=== PATIENT | female | born 1995 | race Caucasian/White ===

== ENCOUNTER 2017-01-16 06:45 | Emergency (ER) | payer OTHER, BC ==
[~2017-01-16] VITALS: Ht 165.1 cm; Wt 60.0 kg
[~2017-01-16 06:45] MED LIST: birth control
[2017-01-16 06:48] VITALS: BP 119/74; PULSE 87; RESP 16; TEMP 97.9; O2SAT 99
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
[2017-01-16 09:00] VITALS: BP 110/66; PULSE 80; RESP 14; O2SAT 99
[2017-03-02] MEDS ORDERED: BUTA1CAP5 PO (16:21)
[2017-03-02] MEDS ORDERED: TRAZ50TA12 PO ×2 (16:21→16:29)
== END 2017-01-16 09:30 | disposition home or self-care (01) ==
LOC: NEPC 06:45
DX: S16.1XXA Strain of muscle, fascia and tendon at neck level, initial encounter (principal); S09.90XA Unspecified injury of head, initial encounter; V43.52XA Car driver injured in collision with other type car in traffic accident, initial encounter; Y93.9 Activity, unspecified; Y92.9 Unspecified place or not applicable; Y99.9 Unspecified external cause status
CPT/HCPCS: 70450; 71010; 72125; 72170

== ENCOUNTER 2018-01-04 10:38 | Emergency (ER) | payer BC, OTHER ==
[~2018-01-04] VITALS: Ht 165.1 cm; Wt 60.0 kg
[~2018-01-04 10:38] MED LIST changes: +BUTA1CAP5 PO; +TRAZ50TA12 PO
[2018-01-04 10:41] VITALS: BP 135/76; PULSE 104; RESP 16; TEMP 97.8; O2SAT 97
--- NOTE | 2018-01-04 11:19 | PD ---
HPI Chief Complaint: Exposure to Blood/Body Fluids Time Seen by Provider: 11:05 Travel History International Travel<30 days: No Contact w/Intl Traveler<30days: No Traveled to known affect area: No History of Present Illness HPI The patient is a 22-year-old female who presents to the emergency department for blood exposure to the left eye. 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 The patient was wearing a mask but no eye shield. The patient states there were blood particles just inferior to the left eye, she may have received blood onto the conjunctiva. She immediately irrigated the left eye. She states the patient in the intensive care unit did have a history of IV drug abuse and hepatitis C, she is unsure about the patient's HIV status. The patient's hepatitis B vaccination is up-to-date, however, she was a "low responder". The patient denies any history of HIV or hepatitis C. Her tetanus shot is up-to-date. PFSH Past Medical History Anxiety: Yes Diminished Hearing: No ?: Not LMP: 12/23/17 Past Surgical History Other Surgery: Yes (bilateral breast implants) Social History Alcohol Use: No Tobacco Use: No Substance Use: No Allergies-Medications (Allergen,Severity, Reaction): Coded Allergies: No Known Allergies (Unverified , 03/02/17) Reported Meds & Prescriptions Reported Meds & Active Scripts Active Trazodone (Trazodone HCl) 50 Mg Tab 50 Mg PO HS [id number]-Bktrexpltsoge-Rmiyhjlo 50-300-40 Mg Cap 1 Cap PO Q4H PRN Do not exceed 6 capsules/day. Reported [ control] Review of Systems Except as stated in HPI: all other systems reviewed are Neg Skin: Positive Other (blood exposure to left face and possibly the conjunctiva) Physical Exam Narrative GENERAL: Awake, alert, very pleasant 22-year-old female who appears her stated age and is in no acute respiratory distress. SKIN: Focused skin assessment warm/dry. HEAD: Atraumatic. Normocephalic. EYES: Pupils equal and round. No scleral icterus. No injection or drainage. ENT: No nasal bleeding or discharge. Mucous membranes pink and moist. No visible dry blood on the left aspect of the face. MUSCULOSKELETAL: No obvious deformities. No clubbing. No cyanosis. No edema. NEUROLOGICAL: Awake and alert. No obvious cranial nerve deficits. Motor grossly within normal limits. Normal speech. PSYCHIATRIC: Appropriate mood and affect; insight and judgment normal. Data Data Last Documented VS Vital Signs Date Time Temp Pulse Resp B/P (MAP) Pulse Ox O2 Delivery O2 Flow Rate FiO2 01/04/18 10:41 97.8 104 16 135/76 (33) 97 MDM Medical Decision Making Medical Screen Exam Complete: Yes Emergency Medical Condition: Yes Medical Record Reviewed: Yes Differential Diagnosis Differential diagnosis includes but exposure, possible hepatitis see exposure, possible HIV exposure, blood-borne pathogen exposure. Narrative Course An exposure packet was completed. I asked nursing staff to contact the charge nurse at [facility] to make sure that a SUDS was performed on the patient in the intensive care unit. The source patient's HIV was negative. The patient's hep C was positive, hep B negative. The patient will need follow-up in regards to hepatitis C testing at the occupational medicine building through [facility]. No antiviral therapy warranted for HIV as patient is HIV negative. Diagnosis Primary Impression: Exposure to blood Additional Instructions: The patient is advised to follow-up with occupational health as she will need repeat hepatitis C testing. Patient is medically cleared to return to work. Med/Other Pt SpecificInfo: No Change to Meds Disposition: 01 DISCHARGE HOME Condition: Stable Josh Andujar MD Jan 04, 2018 11:19
== END 2018-01-04 11:56 | disposition home or self-care (01) ==
LOC: NEPD 10:38
DX: Z77.21 Contact with and (suspected) exposure to potentially hazardous body fluids (principal); B19.20 Unspecified viral hepatitis C without hepatic coma; F41.9 Anxiety disorder, unspecified
CPT/HCPCS: 99283